=== PATIENT | female | born 1960 | race Caucasian/White ===

== ENCOUNTER 2017-05-10 09:08 | Inpatient (IN) | END 2017-05-11 18:55 | disposition home or self-care (01) | DRG 581 ==

== ENCOUNTER 2018-02-02 22:14 | Emergency (ER) | END 2018-02-03 05:19 | disposition home or self-care (01) ==

== ENCOUNTER 2018-02-03 15:16 | Emergency (ER) | END 2018-02-03 21:12 | disposition short-term general hospital (02) ==

== ENCOUNTER 2018-06-23 12:34 | Emergency (ER) | payer OTHER ==
[~2018-06-23] VITALS: Ht 157.5 cm; Wt 65.0 kg
[~2018-06-23 12:34] MED LIST: GLIP10TA14 PO; METF850T13 PO
[2018-06-23 12:46] VITALS: BP 134/64; PULSE 95; RESP 18; Ht 157.5 cm; Wt 65.0 kg
[2018-06-23] MEDS ORDERED: FLOV110 INHALATION (15:25)
[2018-06-23] MEDS ORDERED: D-ME118S24 PO (15:26)
--- NOTE | 2018-06-23 15:42 | ERD ---
ER Documentation Chief Complaint Chief Complaint cough HPI 58-year-old female presents for cough times 10 days. She states that the cough is productive of phlegm. She is also admits to runny nose. Denies fevers. Took 3 different types of cough medications [id number] without relief. There is also associated mild shortness of breath and diarrhea. She does have a past medical history of diabetes. Otherwise no other treatments tried. ROS All systems reviewed and are negative except as per history of present illness. Medications Home Meds Active Scripts D-Methorphan Hb/P-Epd HCl/Bpm (Wndzwtlwpr-Ulfbgqzbamc-Ho Syr) 118 Ml Syrup, 5 ML PO Q4H PRN for COUGH for 10 Days, #1 BOTTLE Prov:ARJUN CABRERA 06/23/18 Fluticasone Propionate* (Flovent* HFA 110) 12 Gm Inha, 1 PUFF INHALATION BID for cough/shortness of breath7 for 7 Days, #1 INHALER Prov:ARJUN CABRERA 06/23/18 Reported Medications Glipizide* (Glipizide*) 10 Mg Tablet, 10 MG PO AC DINNER, TAB 02/03/18 Glipizide* (Glipizide*) 10 Mg Tablet, 15 MG PO AC BREAKFAST, TAB 02/03/18 Metformin Hcl* (Metformin Hcl*) 850 Mg Tablet, 850 MG PO WITH MEALS, #60 TAB 02/03/18 Allergies Allergies: Coded Allergies: No Known Drug Allergies (Verified Allergy, Unknown, 02/03/18) PMhx/Soc History of Surgery: Yes (breast CA) Anesthesia Reaction: No Hx Neurological Disorder: No Hx Respiratory Disorders: No Hx Cardiac Disorders: No Hx Psychiatric Problems: No Hx Miscellaneous Medical Probl: Yes (DM) Hx Alcohol Use: No Hx Substance Use: No Hx Tobacco Use: No Smoking Status: Never smoker Physical Exam Vitals Vital Signs Date Temp Pulse Resp B/P (MAP) Pulse Ox O2 O2 Flow FiO2 Time Delivery Rate 06/23/18 98.2 95 18 134/64 94 12:46 (87) Physical Exam Const: No acute distress Head: Atraumatic Eyes: Normal Conjunctiva ENT: Normal External Ears, bilateral tympanic membrane intact without erythema or bulging noted, nose and Mouth examination normal, no tonsillar swelling or exudate noted Neck: Full range of motion. No meningismus. Resp: Mild crackles noted in the lung cherry Cardio: Regular rate and rhythm, no murmurs Skin: No petechiae or rashes Ext: No cyanosis, or edema Neur: Awake and alert Psych: Normal Mood and Affect Procedures/MDM Medical Decision Making: Differential diagnosis includes but not limited to upper respiratory infection, pneumonia, sepsis, meningitis, influenza. Patient appeared well on physical examination, nontoxic appearing. There is low suspicion for sepsis, meningitis. ER course EKG: Rate/Rhythm: Normal Sinus Rhythm QRS, ST, T-waves: No changes consistent w/ acute ischemia Impression: No evidence of ischemia or arrhythmia Chest X-ray 1V Interpreted by me: Soft Tissue: No acute abnormalities Bones: No acute abnormalities Mediastinum/Cardiac Silhouette/Lungs: Some scattered atelectasis noted with diffuse mild interstitial prominence Patient given prescription for supportive medication(s) Patient advised to follow up with PCP in 1-2 days. Patient advised to return to ED for new or worsening symptoms. Patient stable on discharge from the ED. Disclaimer: Inadvertent spelling and grammatical errors are likely due to EHR/dictation software use and do not reflect on the overall quality of patient care. Also, please note that the electronic time recorded on this note does not necessarily reflect the actual time of the patient encounter. Departure Diagnosis: Primary Impression: Cough Condition: Fair Patient Instructions: Cough, Chronic, Uncertain Cause, (Adult) Referrals: ARIC LEONG MD (PCP) Additional Instructions: Llame al doctor AGUSTINA y getachew yaniv JC PARA DENTRO DE 1-2 GREGORY.Dgale a la secretaria que nosotros le instruimos hacer esta jc.Avise o llame si naylor condicin se empeora antes de la jc. Regresa aqui si peor o no mejor. ARJUN CABRERA DO Jun 23, 2018 15:41
== END 2018-06-23 15:33 | disposition home or self-care (01) ==
LOC: FTE 12:34
DX: R05 Cough (principal); E11.9 Type 2 diabetes mellitus without complications; R06.02 Shortness of breath; Z79.84 Long term (current) use of oral hypoglycemic drugs; Z85.3 Personal history of malignant neoplasm of breast
CPT/HCPCS: 71046; 93005; Z7502

== ENCOUNTER 2018-12-03 13:50 | Emergency (ER) | payer OTHER ==
[~2018-12-03] VITALS: Ht 157.5 cm; Wt 66.0 kg
[~2018-12-03 13:50] MED LIST changes: +D-ME118S24 PO; +FLOV110 INHALATION; +METF100010 PO; +OMEP20CA17 PO; +SUCR1TAB56 PO
[2018-12-03 14:07] VITALS: Ht 157.5 cm; Wt 66.0 kg
[2018-12-03] MEDS ORDERED: BELLADONNA/PHENOBARBITAL TAB PO STA (16:22)
[2018-12-03] MEDS ORDERED: LIDOCAINE/MYLANTA 40 ML BTL PO STA (16:22)
[2018-12-03] MEDS ORDERED: FAMOTIDINE 20 MG TAB PO STA (16:22)
[2018-12-03 16:40] VITALS: BP 129/70; PULSE 84; RESP 18
== END 2018-12-03 17:11 | disposition home or self-care (01) ==
LOC: E/R 13:50
DX: R10.13 Epigastric pain (principal); E11.9 Type 2 diabetes mellitus without complications; Z79.84 Long term (current) use of oral hypoglycemic drugs; Z85.3 Personal history of malignant neoplasm of breast
CPT/HCPCS: 80053; 83690; 84484; 85025; 93005; Z7502; Z7610